=== PATIENT | female | born 1955 | race Caucasian/White ===

== ENCOUNTER 2017-03-02 21:20 | Observation (INO) | payer BC ==
[~2017-03-02 21:20] MED LIST: ISOVUE-370 76%-LOCM 1 ML ONE
[2017-03-02 21:49] LABS: #Basophils 0.1 thou/uL (0.0-0.2); #Eosinphils 0.4 thou/uL (0.0-0.7); #Lymphocytes 4.2 thou/uL (1.20-3.40); #Neutrophils 4.4 thou/uL (1.40-6.50); %Basophils 1.3 % (0.0-1.0); %Eosinophils 3.9 % (0.0-10.0); %Lymphocytes 41.3 % (21.0-51.0); %Neutrophils 43.5 % (42.0-75.0); Hemoglobin 14.1 g/dL (12.0-16.0); Mean Corpuscular HGB CONC 32.7 g/dL (32.0-36.0); Mean Corpuscular Volume 97.9 fl (81.0-99.0); Mean Platelet Volume 6.8 fL (7.4-10.4); Platelet Count 236 thou/uL (130-400); RBC Distribution Width 12.3 % (11.5-14.5); White Blood Cell (WBC) Count 10.1 thou/uL (4.8-10.8)
--- NOTE | 2017-03-02 21:54 | CT ---
CT BRAIN WITHOUT CONTRAST 03/02/17 HISTORY: Altered mental status. FINDINGS: No evidence of an infarct, hemorrhage, midline shift or abnormal extra-axial fluid collections are se en. The ventricular size is appropriate and the basilar cisterns are patent. The bony calvarium is in tact. The visualized paranasal sinuses and mastoid air cells are well aerated. IMPRESSION: No CT evidence of acute intracranial process. The findings were discussed over the telephone with ER physician, Dr. Ezequiel Lozano at 9:34 p.m.. POS: [facility]
[2017-03-02 21:55] LABS: PTT 25.5 SEC (22.9-36.1)
[2017-03-02 22:01] LABS: ALT (SGPT) 29 U/L (8-55); AST (SGOT) 32 U/L (5-34); Albumin 4.3 g/dL (3.4-4.8); Alkaline Phosphatase 100 U/L (40-150); Anion Gap 15 mmol/L (10-20); BUN (Urea Nitrogen) 16 mg/dL (9.8-20.1); Bilirubin, Total 0.6 mg/dL (0.2-1.2); Calc. Creatinine Clearance 0 mL/min (70-130); Calcium 10.6 mg/dL (7.8-10.44); Carbon Dioxide 25 mmol/L (23-31); Chloride 103 mmol/L (98-107); Estimated GFR-MDRD 66; Globulin 3.2 g/dL (2.4-3.5); Glucose 101 mg/dL (80-115); Protein, Total 7.5 g/dL (6.0-8.3); Sodium 139 mmol/L (136-145)
[2017-03-02 22:06] LABS: CKMB 1.2 ng/mL (0-6.6); Troponin I Less than 0.010 ng/mL (< 0.028)
--- NOTE | 2017-03-02 22:43 | CT ---
CT ANGIO OF THE HEAD WITH IV CONTRAST AND 3D POSTPROCESSING CT PERFUSION OF THE HEAD 03/02/17 HISTORY: Altered mental status. FINDINGS: There is good flow in the intracranial portions of the vertebrobasilar and internal carotid artery sy stems without evidence of major branch occlusion, high grade stenosis or aneurysm formation. The CT p erfusion images demonstrate no abnormality. IMPRESSION: Unremarkable exam. POS: LUCIANA
[2017-03-02 23:04] LABS: Bilirubin Negative (Negative); Blood, Urine Negative (Negative); Clarity CLEAR (Clear); Glucose, Urine (Dipstick) Negative (Negative); Leukocyte Negative (Negative); Nitrite Negative (Negative); Protein, Urine (Dipstick) Negative (Neg-Trace); Specific Gravity, Urine 1.026 (1.002-1.036); Urobilinogen 0.2 mg/dL (0.2-1.0)
[2017-03-03] MEDS ORDERED: Aspirin 81 mg Enteric Coated Tablet ONE (10:22)
--- NOTE | 2017-03-03 10:45 | HP ---
CHIEF COMPLAINT: Confusional state. 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 She happened to went to ball dancing yesterday along with her new date. This happened at around 9:30 p.m. The patient was having a dance, then she suddenly felt that she was feeling dizzy and her friend made her sit in the chair and after that, the patient was awake, but lost her orientation and she was taken to the car and family was informed. Patient was brought to the ER early in the [facility] and had an evaluation of the ER with CT of the head which was unremarkable and the CTA was also trey wing no evidence of any clot. The patient was seen in the ER room. She was alert and oriented compl etely back to normal and she says she could not remember the events happened after she sat down after the ball dancing and while dancing. She denied having any slurred speech. She denied having any he adache or any shortness of breath, no chest pain, no nausea, no vomiting, no diarrhea, no constipatio n. No history of any recent infections or any sick contacts. Patient mentioned that she has a histo ry of DVT on the left leg in the past and also had pulmonary embolism for which she had [facility] since 1991 and recently one and half year ago she stopped taking Coumadin per Dr. Weems. The patient sees her primary doctor, who is Dr. Dl Sequeira, who also stopped her Coumadin 1-1/2 years a go. She never had any problems after that. She has a history of taking control pills, which w as the reason for her DVT in the past and had a thorough workup with Dr. Weems and was negative for any factor V Leiden deficiencies. Patient has no other known comorbidities except for high blood pressure which was well controlled. The patient also has a history of breast cancer, had a bilateral breast lumps removed. PAST SURGICAL HISTORY: 1. History of breast cancer with bilateral mastectomy in 2009. 2. History of gastric sleeve surgery for weight loss. 3. Bilateral rotator cuff surgeries in the past. PAST MEDICAL HISTORY: 1. Hypertension. 2. History of DVTs in the past. SOCIAL HISTORY: The patient is not a nonsmoker. No history of alcohol, no history of illicit drug u se. FAMILY HISTORY: The patient's grandmother had breast cancer. Mother had a history of blood clots. REVIEW OF SYSTEMS: All 12 systems are reviewed with the patient thoroughly and found to be negative at this time. The following complete review of systems was negative, unless otherwise mentioned in t he HPI or below: Constitutional: Weight loss or gain, sense of well-being, ability to conduct usual activities, exerc ise tolerance. Skin/Breast: Rash, itching, changes in hair growth or loss, nail changes, breast lumps, tenderness, swelling, nipple discharge. Eyes: Vision, double vision, tearing, blind spots, pain. ENT/Mouth: Headaches (location, time of onset, duration, precipitating factors), vertigo, lightheade dness, injury. Vision, double vision, tearing, blind spots, pain, nose bleeding, colds, obstruction, discharge, dental difficulties, gingival bleeding, dentures, neck stiffness, pain, tenderness, masses in thyroid or other areas Cardiovascular: Precordial pain, substernal distress, palpitations, syncope, dyspnea on exertion, or thopnea, nocturnal paroxysmal dyspnea, edema, cyanosis, hypertension, heart murmurs, varicosities, ph lebitis, claudication. Respiratory: Pain, shortness of breath, wheezing, stridor, cough, hemoptysis, fever or night sweats Gastrointestinal: Poor appetite, dysphagia, indigestion, abdominal pain, heartburn, eructation, naus ea, vomiting, hematemesis, jaundice, constipation, or diarrhea, abnormal stools (maria luz-colored, tarry, bloody, greasy, foul smelling), flatulence, hemorrhoids, recent changes in bowel habits. Genitourinary: Urgency, frequency, dysuria, nocturia, hematuria, polyuria, oliguria, unusual (or audelia nge in) color of urine, stones, hesitancy, change in size of stream, dribbling, acute retention or in continence, libido, potency. Musculoskeletal: Pain, swelling, redness or heat of muscles or joints, limitation, of motion, muscul ar weakness, atrophy, cramps. Neurologic/Psychiatric: Convulsions, paralyses, tremor, incoordination, paraesthesias, difficulties with memory of speech, sensory or motor disturbances, or muscular coordination (ataxia, tremor), emot ional problems, anxiety, depression, previous psychiatric care, unusual perceptions, hallucinations. Allergy/Immunologic: Skin rash, anemia, bleeding tendency, polydipsia, polyuria, intolerance to heat or cold. LABORATORY DATA: WBC 10.1, hemoglobin is 14.1, hematocrit is 33.0, and platelets are 236. Sodium 120, potassium 4.0, chloride 103, bicarbonate is 25, BUN is 16, creatinine 0.87, calcium 10.6. IMAGING DATA: CT of the brain was negative. CTA of the head and neck was negative for any clot. ASSESSMENT AND PLAN: 1. Acute transient ischemic attack. 2. Acute transient cerebral amnesia. 3. History of deep venous thrombosis in the past. 4. History of breast cancer. 5. History of hypertension. PLAN: 1. Plan is to closely monitor this patient with neuro checks, continue every 4-6 hours and Neurology has been consulted. Dr. Naylor managed and waiting for MRI of the brain at this time. We will contin ue the patient with aspirin and check lipid profile and we will start the patient on statins. 2. The patient could have had acute cerebral amnesia, which was transient. We will closely monitor and we will follow with Neurology as outpatient for any further workup. 3. The patient has history of breast cancer and history of DVTs. We will have the patient follow up with Dr. Weems to see if she would need any further workup for any thrombophilia. 4. The patient is on estradiol 10 mg. At this time, we will hold off on this and we will have her h ematologist to decide on if the patient needs to be continued on this based on the current event. 5. Patient has a history of hypothyroidism which is well controlled. We will continue the patient o n home medication. 6. DVT prophylaxis, she is on Lovenox. I spent 70 minutes on this patient.
[2017-03-03 11:10] VITALS: BMI 34.7
[2017-03-03 12:38] LABS: Cardiac Risk 2.1 (Less than 4.5)
[2017-03-03] MEDS ORDERED: Gadobenate Dimeglumine 529 MG/1 ML (20ML VIAL) ONE (15:48)
--- NOTE | 2017-03-03 17:01 | MRI ---
MRI BRAIN WITH AND WITHOUT CONTRAST: INDICATION: New-onset confusion. COMPARISON: Reference is made to head CT of previous day. FINDINGS: There is a normal-sized ventricular system. Mild chronic microvascular ischemic disease is present. There is no evidence of intracranial hemorrhage, or acute territorial infarction. Imaged skull base flow voids were patent. The cantwell intraocular lenses were absent. There is no pathologic intraaxi al enhancement. Sellar contents are unremarkable. There is trace meniscal fluid bilaterally and min imal mucosal thickening. IMPRESSION: 1. No acute intracranial abnormalities. 2. Minimal chronic microvascular ischemic disease. POS: [facility]
--- NOTE | 2017-03-04 02:22 | CON ---
DATE OF CONSULTATION: 03/03/2017 REFERRING PROVIDER: Ezequiel Lozano D.O. REASON FOR CONSULTATION: Confusion, altered mental status. HISTORY OF PRESENT ILLNESS: Ms. Hurt is a pleasant 61-year-old female, who has been oj rned for evaluation of altered mental status. She reports that she had gone to ball dancing with her friends on yesterday evening while after performing dance she had sudden onset of feeling dizziness. She sat down, at that time her friends noted that she was somewhat confused, which prompted them to take her to the emergency room. Her daughter reports that at that time, she was asking the same que stion over and over. She was not able to recognize her daughter has already been . She also could not remember the name of her son-in-law, this confusion lasted approximately 2 to 3 hours. She did have a mild headache in the bifrontal region, this was dull in quality, nonradiating, and mild i n intensity. She did not have any vision changes, diplopia, ptosis, numbness, tingling or weakness. She reports that on that morning, she had noted flashes of lights that lasted for several minutes an d she did have mild dull headache in bifrontal region at that time. She reports of having no convuls ions, no tongue biting, no loss of bladder control with this episode. She has no prior history of se izure disorder. She does complain of having episodes of snoring at night and having sleep apnea. PAST MEDICAL HISTORY: Significant for hypertension, history of DVT in the past, history of breast ca ncer. PAST SURGICAL HISTORY: Significant for bilateral mastectomy, gastric sleeve surgery, and bilateral r otator cuff surgeries. SOCIAL HISTORY: She denies smoking, alcohol use, or illicit drug use. 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 FAMILY HISTORY: Significant for grandmother with history of breast cancer and mother with history of blood clots. CURRENT MEDICATIONS: Please review MAR. ALLERGIES: Include SULFA DRUGS. REVIEW OF SYSTEMS: As mentioned in the HPI, otherwise negative. PHYSICAL EXAMINATION: VITAL SIGNS: Blood pressure of 104/69, pulse of 75, temperature of 98.2, respirations of 16, O2 sats of 95% on room air. GENERAL: Well-developed, well-nourished female in no apparent distress. RESPIRATORY: Clear to auscultation bilaterally. CARDIOVASCULAR: Regular rate and rhythm. NEUROLOGIC: Mental status: The patient is awake, alert, oriented x3. Speech and language: Fluent speech. Cranial nerves: Pupils are 3 mm and reactive. Visual holm are intact. External muscles are intact. No nystagmus noted. Face is symmetric. Tongue and uvula are midline. Motor exam showe d normal tone and bulk with 5/5 strength in both upper and lower extremities. Sensory: Sensation is intact and symmetric. Deep tendon reflexes, 2+ reflexes in both upper and lower extremities. Kosta ski: Plantar responses flexion bilaterally. Coordination intact to godige-wrao-beuxes, finger tappi ng bilaterally. LABORATORY DATA: Reviewed, which included CBC, coag panel, CMP, lipid profile, and urinalysis, which is all essentially normal. IMAGING STUDIES: MRI brain without contrast was reviewed, which showed no acute intracranial abnorma lity. CT angiogram of the head and neck with brain perfusion was reviewed, which showed no significa nt intracranial or extracranial vascular abnormality. There was no perfusion mismatch defect. Echoc ardiogram results were reviewed, which showed EF of 60% to 65% without any wall motion abnormality or intracardiac mass or thrombus. IMPRESSION: Transient global amnesia. Ms. Hurt is a pleasant 61-year-old female, who presented with the confusion. Based on the description of symptoms, this is likely suggestive of her transient global amnesia. I have discusse d the likely causes for TGA include metabolic abnormalities, migraines, seizures, obstructive sleep a pnea and idiopathic. At this time, I would recommend patient talked to her primary care physician to have outpatient sleep study done. I have reviewed her MRI brain and angiogram, which has essentiall y normal. There is no further neurological workup needed at this time. The patient is going to be d ischarged home from neurological standpoint. Thank you for consultation.
[2017-03-04] MEDS ORDERED: Acetaminophen 325 MG TAB PO PRN (05:51)
[2017-03-04] MEDS ORDERED: Levothyroxine 150 MCG TAB PO SCH (06:00)
[2017-03-04] MEDS ORDERED: Bupropion 150 MG XL TAB PO SCH (09:00)
[2017-03-04] MEDS ORDERED: Aspirin 325 MG TAB PO SCH (09:00)
[2017-03-04] MEDS ORDERED: Docusate 100 MG CAP PO PRN (09:00)
[2017-03-04] MEDS ORDERED: FLU VACC QS2017-18 36 mo. & older 0.5 ML SYRINGE IM ONE (09:00)
[2017-03-04] MEDS ORDERED: Venlafaxine HCl XR 150 MG CAP PO SCH (09:00)
[2017-03-04 11:42] VITALS: TEMP 97.5
[2017-03-04 12:26] VITALS: BP 90/47
--- NOTE | 2017-03-05 13:54 | DIS ---
DATE OF ADMISSION: 03/03/2017 DATE OF DISCHARGE: 03/04/2017 ADMITTING DIAGNOSIS: Acute transient ischemic attack. DISCHARGE DIAGNOSES: Acute transient cerebral disorder and acute transient global amnesia. SECONDARY DIAGNOSES: 1. History of breast cancer. 2. History of hypertension. CONSULTANTS INVOLVED IN THIS CARE: Dr. Tejinder Sanchez and Dr. Carnes from Neurology. INVESTIGATIONS DONE DURING THIS ADMISSION: 1. A CT of the head was negative for any intracranial bleed. CTA of the brain was done and was nega tive for any kind of intracranial artery stenosis. 2. MRI of the brain was negative for any acute stroke. A 2D echo was normal. 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 She happened to have an episode while she was dancing with her boyfriend. She noted she had a sudden dizzy feeling and she was advised to sit on the chair. Since then, she did not remember anything until she was brought to the ER by her family. The patient shaheen ed in the ER, she had a complete regain of her orientation, but she had lost the time since her ball dance and she could not recollect how she ended up coming to the ER. Initially, had a CT head and CT A was negative. She was closely monitored with neuro checks overnight. There was no further events, which occurred again. So Neurology was consulted who after thorough evaluation, I explained to the patient that this could be a transient event, which could be possibly from secondary to sleep apnea, which she could be from migraine headaches, which she did not had. The patient is advised to get a s leep study from her primary care physician. PHYSICAL EXAMINATION: On date of discharge: VITAL SIGNS: Blood pressures are 103/58, heart rate is 68, respiration rate and 16 and saturation is 98%. GENERAL: The patient is moderately built and moderately nourished, does not appear to be in acute di stress at this time. She is alert and oriented x3. HEENT: Atraumatic and normocephalic. PERRLA. Extraocular muscles are intact. Oral mucosa is pink and moist. CARDIOVASCULAR: S1 and S2 normal. No murmurs, rubs or gallops. LUNGS: Bilateral air entry was equal. No wheezing, no crackles. ABDOMEN: Soft and nontender. No guarding, no rebound tenderness. Bowel sounds are normal. MUSCULOSKELETAL: No calf tenderness. No pedal edema. No joint tenderness, no joint swelling. SKIN: No cyanosis, no edema, no rash, no pallor. NEUROLOGIC: Cranial nerve examination II-XII intact. No focal deficits were noted. DISCHARGE MEDICATIONS: 1. Aspirin 325 mg p.o. daily. 2. Atorvastatin 10 mg p.o. daily. 3. Desvenlafaxine 100 mg p.o. daily. 4. Docusate 100 mg daily. 5. Levothyroxine 137 mcg p.o. daily. 6. [place] 3 fatty acid 1 capsule daily. 7. Estradiol 2 mg daily. 8. Lasix 20 mg daily. DISCHARGE INSTRUCTIONS: Advised to follow up with the primary care physician in 1-2 weeks. Advised to have a sleep study referred through her primary care physician. Follow up with Neurology in 2-3 w eeks. Continue activity as tolerated. I spent 35 minutes with this patient.
--- NOTE | 2017-03-20 22:42 | EKG ---
Test Reason : Blood Pressure : / mmHG Vent. Rate : 068 BPM Atrial Rate : 067 BPM P-R Int : 000 ms QRS Dur : 094 ms QT Int : 430 ms P-R-T Axes : 000 -25 016 degrees QTc Int : 457 ms Accelerated Junctional rhythm Minimal voltage criteria for LVH, may be normal variant Abnormal ECG Confirmed by VILLA AYALA ([id number]), rewrite editor ERINN CHAO ([id number]) on 03/20/2017 10:40:59 PM Referred By: Confirmed By:VILLA AYALA
== END 2017-03-04 12:22 | disposition home or self-care (01) ==
LOC: ERS 21:20 → ERHOLD 03-03 01:03 → 2SE 03-03 10:40
PROVIDERS: ADMIT Internal Medicine; ATTEND Internal Medicine
DX: G45.9 Transient cerebral ischemic attack, unspecified (principal); F32.9 Major depressive disorder, single episode, unspecified; E78.5 Hyperlipidemia, unspecified; Z79.82 Long term (current) use of aspirin; Z79.899 Other long term (current) drug therapy
CPT/HCPCS: 0042T; 36415; 36416; 70450; 70496; 70553; 80053; 80061; 81003; 82553; 84484; 85025; 85610; 85730; 93005; 93306; A9579; G0378; G8978-GP-CI; G8979-GP-CI; G8980-GP-CI; G8987-GO-CI; G8988-GO-CI; G8989-GO-CI; G9168-GN-CH; G9169-GN-CH

== ENCOUNTER 2018-05-28 07:45 | Emergency (ER) | payer BC, OTHER ==
[2018-05-28] MEDS ORDERED: Morphine 4 MG/ML VIAL ONE (08:11)
[2018-05-28] MEDS ORDERED: Ondansetron PF 4 MG/2 ML Vial ONE (08:11)
[2018-05-28 08:33] LABS: Bilirubin Negative (Negative); Blood, Urine Trace (Negative); Clarity Clear (Clear); Glucose, Urine (Dipstick) Negative (Negative); Leukocyte Negative (Negative); Nitrite Negative (Negative); Protein, Urine (Dipstick) Trace mg/dL (Neg-Trace); Urobilinogen 0.2 mg/dL (0.2-1.0); pH, Urine 6.5 (5.0-9.0)
[2018-05-28 08:33] LABS: Hemoglobin 13.4 g/dL (12.0-16.0); Mean Corpuscular HGB CONC 32.6 g/dL (32.0-36.0); Mean Corpuscular Hemoglobin 30.8 pg (27.0-31.0); Mean Corpuscular Volume 94.4 fL (78.0-98.0); Mean Platelet Volume 6.6 fL (7.4-10.4); Platelet Count 196 thou/uL (130-400); RBC Distribution Width 12.4 % (11.5-14.5); Red Blood Cell (RBC) Count 4.37 mill/uL (4.20-5.40); White Blood Cell (WBC) Count 7.2 thou/uL (4.8-10.8)
[2018-05-28 08:36] LABS: Bacteria/HPF Rare-Few HPF (None Seen); Hyaline Casts/LPF 0-3 HYALINE CAST LPF (0-3 Hyaline); RBC/HPF 0-3 HPF (0-3); WBC/HPF 0-3 HPF (0-3)
[2018-05-28 08:39] LABS: ALT (SGPT) 22 U/L (8-55); AST (SGOT) 30 U/L (5-34); Albumin 4.2 g/dL (3.4-4.8); Alkaline Phosphatase 116 U/L (40-150); Anion Gap 13 mmol/L (10-20); BUN (Urea Nitrogen) 14 mg/dL (9.8-20.1); Bilirubin, Total 0.7 mg/dL (0.2-1.2); Calc. Creatinine Clearance 0 mL/min (70-130); Calcium 9.9 mg/dL (7.8-10.44); Carbon Dioxide 27 mmol/L (23-31); Chloride 106 mmol/L (98-107); Estimated GFR-MDRD 68; Globulin 3.1 g/dL (2.4-3.5); Glucose 104 mg/dL (80-115); Lipase 40 U/L (8-78); Protein, Total 7.3 g/dL (6.0-8.3); Sodium 142 mmol/L (136-145)
[2018-05-28 08:43] LABS: Eosinophils 7 % (0-10); Lymphocytes 48 % (21-51); MDiff Complete? YES; Monocytes 3 % (0-10); Neutrophil 41 % (42-75)
--- NOTE | 2018-05-28 08:49 | CT ---
FCT abdomen noncontrast CT pelvis noncontrast: (Urolithiasis protocol) 05/28/2018 8:25 AM HISTORY: 62-year-old female with left flank pain radiating to groin. FINDINGS: Lack of IV contrast and lack of enteric contrast limits the sensitivity of CT for all disease entitie s other than urolithiasis. Suture lines around narrowed stomach. Small to moderate size hiatal hernia . No consolidation or pleural effusion at lung bases. IVC filter. No small bowel dilation. No pneumop eritoneum. Decompressed urinary bladder. No hydronephrosis. No calculus identified in kidneys, ureter s, or bladder. Multiple diverticula at sigmoid colon without diverticulitis. No ascites. Normal appen walter. Within the limitations of a noncontrast scan, no obvious major abnormality identified involving kidneys, adrenals, pancreas, liver, or spleen. No abdominal aortic aneurysm. Assimilation joint with severe degenerative changes at left lumbosacral pseudoarthrosis. Severe DJD at bilateral facet joints at lumbosacral junction. IMPRESSION: 1. No urolithiasis or obstructive uropathy. 2. Status post bariatric surgery. 3. Small to moderate size hiatal hernia, a new finding compared to previous CT of 12/26/2007. 4. 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
== END 2018-05-28 09:15 | disposition home or self-care (01) ==
LOC: SCSER 07:45
DX: K44.9 Diaphragmatic hernia without obstruction or gangrene (principal); M47.9 Spondylosis, unspecified; E03.9 Hypothyroidism, unspecified; F32.9 Major depressive disorder, single episode, unspecified; E78.5 Hyperlipidemia, unspecified; Z79.899 Other long term (current) drug therapy
CPT/HCPCS: 74176; 80053; 81003; 81015; 83690; 85025; 96361; 96374; 96375; J2270; J2405

== ENCOUNTER 2022-04-19 09:49 | Observation (INO) | payer MEDICARE ==
[2022-04-19] MEDS ORDERED: Ondansetron PF 4 MG/2 ML Vial IVP PRN (11:11)
[2022-04-19] MEDS ORDERED: Senokot S 8.6-50 MG TAB PO PRN (11:11)
[2022-04-19] MEDS ORDERED: Ondansetron ODT 4 MG TAB PO PRN (11:11)
[2022-04-19 11:13] LABS: #Basophils 0.1 thou/uL (0.0-0.2); #Eosinphils 0.1 thou/uL (0.0-0.7); #Lymphocytes 3.5 thou/uL (1.20-3.40); #Monocytes 0.8 thou/uL (0.11-0.59); #Neutrophils 4.2 thou/uL (1.40-6.50); %Basophils 0.9 % (0.0-1.0); %Eosinophils 1.7 % (0.0-10.0); %Lymphocytes 39.7 % (21.0-51.0); %Monocytes 9.6 % (0.0-10.0); %Neutrophils 48.1 % (42.0-75.0); Hemoglobin 14.9 g/dL (12.0-16.0); Mean Corpuscular HGB CONC 33.1 g/dL (32.0-36.0); Mean Corpuscular Volume 99.9 fl (78.0-98.0); Mean Platelet Volume 7.2 fL (7.4-10.4); Platelet Count 203 10x3/uL (130-400); RBC Distribution Width 11.8 % (11.5-14.5); White Blood Cell (WBC) Count 8.7 10x3/uL (4.8-10.8)
[2022-04-19] MEDS ORDERED: Ipratropium/Albuterol 3 ML NEB NEB PRN (11:13)
[2022-04-19] MEDS ORDERED: guaiFENesin 200 MG TAB PO PRN (11:13)
[2022-04-19 11:29] LABS: Albumin 4.1 g/dL (3.4-4.8)
[2022-04-19 11:30] LABS: Chloride 104 mmol/L (98-107); Potassium 3.9 mmol/L (3.5-5.1); Sodium 140 mmol/L (136-145)
[2022-04-19 11:31] LABS: Calcium 9.8 mg/dL (7.8-10.44)
[2022-04-19 11:32] LABS: Globulin 3.5 g/dL (2.4-3.5); Glucose 94 mg/dL (80-115); Protein, Total 7.6 g/dL (5.8-8.1)
[2022-04-19 11:33] LABS: Anion Gap 15 mmol/L (10-20); Bilirubin, Total 0.7 mg/dL (0.2-1.2); Carbon Dioxide 25 mmol/L (23-31)
[2022-04-19 11:34] LABS: Alkaline Phosphatase 105 U/L (40-110)
[2022-04-19 11:35] LABS: Calc. Creatinine Clearance 0 mL/min (70-130); Estimated GFR 73
[2022-04-19 11:36] LABS: BUN (Urea Nitrogen) 14 mg/dL (9.8-20.1)
[2022-04-19 11:37] LABS: AST (SGOT) 30 U/L (5-34)
[2022-04-19 11:38] LABS: ALT (SGPT) 33 U/L (8-55)
[2022-04-19 14:25] LABS: Hemoglobin A1c 5.3 % (4.0-6.0)
[2022-04-19 14:36] VITALS: BMI 35.9
[2022-04-19] MEDS ORDERED: Docusate 100 MG CAP PO PRN (20:26)
[2022-04-19] MEDS ORDERED: Loratadine/Pseudoephedrine 10/240 mg Tablet PO PRN (21:00)
[2022-04-19] MEDS ORDERED: Aspirin 325 mg Enteric Coated Tablet PO SCH (21:00)
[2022-04-19] MEDS ORDERED: Methylcellulose 500 MG TAB PO SCH (21:00)
[2022-04-19] MEDS ORDERED: Atorvastatin Calcium 10 MG TAB PO SCH (21:00)
[2022-04-19] MEDS ORDERED: FLUoxetine HCl 20 MG CAP PO SCH (21:00)
[2022-04-20 05:21] LABS: #Basophils 0.1 thou/uL (0.0-0.2); #Eosinphils 0.2 thou/uL (0.0-0.7); #Lymphocytes 3.1 thou/uL (1.20-3.40); #Monocytes 0.8 thou/uL (0.11-0.59); #Neutrophils 3.6 thou/uL (1.40-6.50); %Basophils 0.8 % (0.0-1.0); %Eosinophils 2.3 % (0.0-10.0); %Lymphocytes 40.3 % (21.0-51.0); %Monocytes 10.3 % (0.0-10.0); %Neutrophils 46.4 % (42.0-75.0); Hemoglobin 13.9 g/dL (12.0-16.0); Mean Corpuscular HGB CONC 32.9 g/dL (32.0-36.0); Mean Corpuscular Hemoglobin 32.6 pg (27.0-31.0); Mean Corpuscular Volume 99.1 fl (78.0-98.0); Mean Platelet Volume 7.2 fL (7.4-10.4); Platelet Count 200 10x3/uL (130-400); RBC Distribution Width 11.8 % (11.5-14.5); Red Blood Cell (RBC) Count 4.26 mill/uL (4.20-5.40); White Blood Cell (WBC) Count 7.7 10x3/uL (4.8-10.8)
[2022-04-20 05:45] LABS: Anion Gap 15 mmol/L (10-20); BUN (Urea Nitrogen) 20 mg/dL (9.8-20.1); Calc. Creatinine Clearance 88 mL/min (70-130); Calcium 9.3 mg/dL (7.8-10.44); Carbon Dioxide 22 mmol/L (23-31); Cardiac Risk 2.1 (Less than 4.5); Chloride 107 mmol/L (98-107); Cholesterol 158 mg/dl (< 200 Desired); Estimated GFR 70; Glucose 106 mg/dL (80-115); HDL Cholesterol 76 mg/dL (>60 Neg Risk); LDL Cholesterol, Calculated 73 mg/dL; Potassium 3.7 mmol/L (3.5-5.1); Sodium 140 mmol/L (136-145); Triglycerides 43 mg/dL (Less than 150)
[2022-04-20] MEDS ORDERED: Levothyroxine Sodium 112 MCG TAB PO SCH (06:00)
[2022-04-20] MEDS: Acetaminophen 325 MG TAB PO PRN ×2 (08:40→17:10)
[2022-04-20] MEDS ORDERED: Iopamidol 370 76% 100 ML VIAL ONE (08:42)
[2022-04-20] MEDS ORDERED: Montelukast Sodium 10 mg Tablet PO SCH (09:00)
[2022-04-20] MEDS ORDERED: Furosemide 20 MG TAB PO SCH (09:00)
[2022-04-20 16:46] VITALS: BP 103/50; TEMP 97.3
[2022-04-21] MEDS ORDERED: Fish Oil 1,000 MG CAP PO SCH (09:00)
== END 2022-04-20 18:25 | disposition home or self-care (01) ==
LOC: ERS 09:49 → ERHOLD 10:42 → 2SW 14:17
PROVIDERS: ADMIT Family Medicine; ATTEND Family Medicine
DX: H54.61 Unqualified visual loss, right eye, normal vision left eye (principal); K21.9 Gastro-esophageal reflux disease without esophagitis; E06.3 Autoimmune thyroiditis; G62.9 Polyneuropathy, unspecified; J45.909 Unspecified asthma, uncomplicated; D75.89 Other specified diseases of blood and blood-forming organs; I08.3 Combined rheumatic disorders of mitral, aortic and tricuspid valves; Z85.3 Personal history of malignant neoplasm of breast; Z86.73 Personal history of transient ischemic attack (TIA), and cerebral infarction without residual deficits; Z86.711 Personal history of pulmonary embolism; Z86.718 Personal history of other venous thrombosis and embolism; Z79.82 Long term (current) use of aspirin; Z79.890 Hormone replacement therapy; Z79.899 Other long term (current) drug therapy; Z88.2 Allergy status to sulfonamides; Z98.84 Bariatric surgery status
CPT/HCPCS: 70496; 70498; 70551; 80048; 80053; 80061; 83036; 85025 ×2; 93005; 93306; 93880; 96372; 99284; G0378 ×3; 36415; J1650; Q9967